=== PATIENT | male | born 1930 | race African-American/Black ===

== ENCOUNTER 2017-08-24 10:10 | Outpatient (CLI) | payer MEDICARE, BC ==
--- NOTE | 2017-08-24 13:27 | CT ---
CT CHEST WITHOUT CONTRAST: Date: 08/24/17 HISTORY: Lung cancer. COMPARISON: Multiple prior exams, most recent 09/02/16. FINDINGS: Corresponding to the area of the known malignancy seen on the 09/02/16 examination is an increase in focal soft tissue density. Initial mass measured approximately 2.6 cm and now measures approximately 3.0 cm. There is increased soft tissue density extending to the hilum. Nodule in the right upper lobe measuring 3.0 mm, series 3, image 19, is similar. There are new areas of peripheral alveolar opacities in the right lower lobe which may be post-treatment in nature. The o verall thickness of the opacification within the right middle lobe has a craniocaudal dimension of 17 .0 mm, previously having a craniocaudal dimension of 6.0 mm. Dense vascular calcifications of the aorta. No significant adenopathy. Dense coronary artery calcific ations. There is interposition of bowel between the right hemidiaphragm and the liver. Spleen is small. IMPRESSION: 1. Increased soft tissue density in the area of suspected right middle lobe malignancy, series 3, im age 33, measuring up to 2.6 cm. This concerning for tumor recurrence or progression. 2. Increased density at the right middle lobe may reflect post-treatment changes. A PET CT would be beneficial in this patient. 3. Unchanged right upper lobe pulmonary nodule. 4. No new pulmonary nodules are seen in the chest. POS: NOE
== END 2017-08-24 10:11 | disposition home or self-care (01) ==
LOC: CT 10:10
PROVIDERS: ATTEND Radiology Radiation Oncology
DX: C34.31 Malignant neoplasm of lower lobe, right bronchus or lung (principal); R91.1 Solitary pulmonary nodule
CPT/HCPCS: 71250

== ENCOUNTER 2017-10-11 17:55 | Inpatient (IN) | payer MEDICARE, BC ==
[2017-10-11] MEDS ORDERED: Morphine 2 MG/ML SYRINGE ONE (19:49)
[2017-10-11 19:50] LABS: #Eosinphils 0.1 thou/uL (0.0-0.7); #Lymphocytes 0.8 thou/uL (1.20-3.40); #Monocytes 0.4 thou/uL (0.11-0.59); #Neutrophils 7.8 thou/uL (1.40-6.50); %Basophils 0.2 % (0.0-1.0); %Eosinophils 1.1 % (0.0-10.0); %Lymphocytes 8.4 % (21.0-51.0); %Monocytes 4.8 % (0.0-10.0); %Neutrophils 85.5 % (42.0-75.0); Hemoglobin 8.7 g/dL (14.0-18.0); Mean Corpuscular HGB CONC 31.6 g/dL (32.0-36.0); Mean Corpuscular Hemoglobin 29.3 pg (27.0-31.0); Mean Corpuscular Volume 92.6 fl (80.0-94.0); Mean Platelet Volume 8.6 fL (7.4-10.4); Platelet Count 216 thou/uL (130-400); Red Blood Cell (RBC) Count 2.98 mill/uL (4.70-6.10); White Blood Cell (WBC) Count 9.2 thou/uL (4.8-10.8)
[2017-10-11 20:04] LABS: ALT (SGPT) 8 U/L (8-55); AST (SGOT) 34 U/L (5-34); Albumin 3.3 g/dL (3.4-4.8); Alkaline Phosphatase 117 U/L (40-150); Anion Gap 13 mmol/L (10-20); BUN (Urea Nitrogen) 20 mg/dL (8.4-25.7); Bilirubin, Total 0.3 mg/dL (0.2-1.2); CK (CPK) 79 U/L (30-200); Calc. Creatinine Clearance 0 mL/min (70-130); Calcium 8.5 mg/dL (7.8-10.44); Carbon Dioxide 25 mmol/L (23-31); Chloride 103 mmol/L (98-107); Estimated GFR-MDRD 46; Globulin 3.6 g/dL (2.4-3.5); Glucose 140 mg/dL (83-110); Magnesium 2.6 mg/dL (1.6-2.6); Potassium 5.7 mmol/L (3.5-5.1); Protein, Total 6.9 g/dL (5.8-8.1); Sodium 135 mmol/L (136-145)
[2017-10-11 20:05] LABS: CKMB 1.4 ng/mL (0-6.6); Troponin I 0.029 ng/mL (< 0.028)
--- NOTE | 2017-10-11 20:14 | RAD ---
RIGHT FEMUR TWO VIEW 10/11/17 HISTORY: Fall. COMPARISON: None. FINDINGS: There is a spiral type fracture of the right femur subtrochanteric region extending into the intertro chanteric region. 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 IMPRESSION: Subtrochanteric right femoral spiral fracture with impaction and medial displacement. POS: MIRIAM
--- NOTE | 2017-10-11 20:15 | RAD ---
RIGHT HIP TWO VIEW 10/11/17 HISTORY: Fall. COMPARISON: None. FINDINGS: A subtrochanteric fracture of the right femur. Severe degenerative disease in the right hip. Moderate vascular calcifications. IMPRESSION: Subtrochanteric fracture of the right femur. POS: NOE
[2017-10-11 20:33] LABS: INR-International Normal Ratio 1.2; PTT 29.7 SEC (22.9-36.1); Prothrombin Time 15.7 SEC (12.0-14.7)
--- NOTE | 2017-10-11 21:06 | RAD ---
CHEST ONE VIEW 10/11/17 HISTORY: Preop. COMPARISON: Radiograph from [address] of the chest 08/24/17. FINDINGS: There is elevation of the right hemidiaphragm. There is a soft tissue mass and consolidation of the r ight lower lobe. Linear atelectasis in the left lower lobe. No pneumothorax. IMPRESSION: Right lower lobe mass with increased opacity in the right lower lobe suggesting postobstructive pneum onitis versus pneumonia. POS: [facility]
[2017-10-11 22:58] LABS: Troponin I 0.022 ng/mL (< 0.028)
[2017-10-11 23:19] LABS: Bilirubin Negative (Negative); Blood, Urine Negative (Negative); Clarity CLEAR (Clear); Glucose, Urine (Dipstick) Negative (Negative); Leukocyte Negative (Negative); Nitrite Negative (Negative); Protein, Urine (Dipstick) Negative (Neg-Trace); Specific Gravity, Urine 1.012 (1.002-1.036); Urobilinogen 0.2 mg/dL (0.2-1.0)
[2017-10-11] MEDS ORDERED: Acetaminophen 325 MG TAB PO PRN (23:45)
[2017-10-11] MEDS ORDERED: Ondansetron HCl/PF 4 MG/2 ML Vial IVP PRN (23:45)
[2017-10-11] MEDS ORDERED: Sodium Chloride 0.9% 1,000 ML IV SCH (23:45)
[2017-10-12] MEDS ORDERED: Gabapentin 300 MG CAP PO PRN (01:21)
[2017-10-12] MEDS ORDERED: Sodium Chloride 0.9% 1,000 ML IV SCH (02:00)
[2017-10-12 02:20] LABS: #Lymphocytes 0.5 thou/uL (1.20-3.40); #Monocytes 0.5 thou/uL (0.11-0.59); #Neutrophils 5.9 thou/uL (1.40-6.50); %Eosinophils 0.1 % (0.0-10.0); %Lymphocytes 7.2 % (21.0-51.0); %Monocytes 7.2 % (0.0-10.0); %Neutrophils 85.4 % (42.0-75.0); Hemoglobin 7.3 g/dL (14.0-18.0); Mean Corpuscular HGB CONC 31.4 g/dL (32.0-36.0); Mean Corpuscular Hemoglobin 29.2 pg (27.0-31.0); Mean Corpuscular Volume 93.2 fl (80.0-94.0); Mean Platelet Volume 7.2 fL (7.4-10.4); Platelet Count 182 thou/uL (130-400); RBC Distribution Width 12.6 % (11.5-14.5); Red Blood Cell (RBC) Count 2.49 mill/uL (4.70-6.10); White Blood Cell (WBC) Count 6.9 thou/uL (4.8-10.8)
[2017-10-12 02:36] LABS: Anion Gap 12 mmol/L (10-20); BUN (Urea Nitrogen) 22 mg/dL (8.4-25.7); Calc. Creatinine Clearance 38 mL/min (70-130); Calcium 8.7 mg/dL (7.8-10.44); Carbon Dioxide 26 mmol/L (23-31); Chloride 103 mmol/L (98-107); Estimated GFR-MDRD 50; Glucose 246 mg/dL (83-110); Potassium 4.7 mmol/L (3.5-5.1); Sodium 136 mmol/L (136-145)
[2017-10-12 02:40] LABS: Troponin I 0.041 ng/mL (< 0.028)
--- NOTE | 2017-10-12 03:34 | HP ---
DATE OF ADMISSION: 10/12/2017 PRIMARY CARE PHYSICIAN: Camron Turnre M.D. CHIEF COMPLAINT: Status post fall with right hip pain. HISTORY OF PRESENT ILLNESS: This is an 87-year-old male with a history of diabetes, coronary artery disease status post 4-vessel CABG, chronic kidney disease who presented with a chief complaint of hav ing fallen when a lawn chair collapsed under him. The patient was seated in the lawn chair, he fell with a lawn chair as a collapsed, sustained a right hip fracture was noted by the emergency departmen t. At the time of my evaluation on the floor, the patient is hemodynamically stable, has no complaints o f pain or discomfort. He is here with his at bedside. REVIEW OF SYSTEMS: As per HPI. Constitutional: No recent weight changes, no recent illnesses. No recent fevers or chills. HEENT: No recent episodes of dizziness, lightheadedness, difficulty with v ision. Cardiovascular: No recent issues with chest pain, chest pressure, shortness of breath, left- sided arm numbness or tingling. Respiratory: The patient's endorses that he has been having an intermittent cough that is nonproductive, but otherwise has not had any issues with congestion, shor tness of breath, wheezing or upper respiratory type infection. Gastrointestinal: No issues with mike sea, vomiting, diarrhea, lack of appetite, abdominal pain. Genitourinary: Has not had any issues wi th dysuria recently. Has been producing reasonable amount of urine per the patient's at bedside . Musculoskeletal: No new issues with myalgias, arthralgias, or ambulation over the last 2 to 4 wee ks per the patient and his at bedside. PAST MEDICAL HISTORY: As per above significant for, 1. Type 2 diabetes. 2. Coronary artery disease, status post 4-vessel CABG by Dr. Mcmahon. 3. Chronic kidney disease. 4. Chronic anemia. PAST SURGICAL HISTORY: 1. Status post right humeral repair. 2. Status post ureteroscopy. HOME MEDICATIONS: As per the EMR. No recent changes, no new addition, over the counter medication, vitamin supplements or herbal regimens item. ALLERGIES: PENICILLINS. FAMILY HISTORY: Significant for cardiovascular disease. SOCIAL HISTORY: No tobacco, no alcohol, no illicit drug use. The patient is accompanied by his at bedside today. The patient wishes his to be the medical decision maker if he is unable to m christian his own medical decisions. The patient endorses being a DO NOT RESUSCITATE at this point in time , he is amenable to reversal of this for surgical procedure if needed, but otherwise would like to re main a DO NOT RESUSCITATE/DO NOT INTUBATE outside of a reasonable surgical procedures. PHYSICAL EXAMINATION: GENERAL: The patient is awake, alert, appropriate, in no acute distress, lying in the hospital bed. HEENT: Moist mucous membranes. Equal ocular motions are intact. CARDIOVASCULAR: S1, S2. Pulses 2+ bilateral upper extremity, no pitting pedal edema. RESPIRATORY: Limited anterior examination, otherwise grossly clear to auscultation. No wheezes, ral es or rhonchi. ABDOMEN: Positive bowel sounds, soft, nontender to palpation. MUSCULOSKELETAL: No significant proportion of ecchymoses noted. LABORATORY DATA AND IMAGING: WBC 9.2, hemoglobin 8.7, hematocrit 27.6, platelets 216. INR 1.2, PT 1 5.7. Sodium 135, potassium 5.7, chloride 103, bicarbonate 25, BUN 20, creatinine 1.71, glucose 140, calcium 8.5, magnesium 2.6, total bilirubin 0.3, AST 34, ALT 8, alkaline phosphatase 117, CK-MB 1.4. Creatine kinase 79. Initial troponin 0.029 subsequent 0.022. Total protein 6.9, albumin 3.3. UA i s essentially negative. On 10/11/2017, right femur 2 view impression: "Subtrochanteric right femora l spiral fracture with impaction and medial displacement." On 10/11/2017, hip x-ray at 1759, impress ion: "Subtrochanteric fracture of the right femur." On 10/11/2017 at 1741, chest x-ray, impression: " Right lower lobe mass with increased opacity in the right lower lobe suggesting postobstructive p neumonitis versus pneumonia." ASSESSMENT AND PLAN: An 87-year-old male status post fall in a lawn chair, sustaining a right hip fr acture. 1. Right subtrochanteric right femoral spiral fracture with impaction and medial displacement. Appr eciate orthopedic consultation. The patient currently on bed rest with pain controlled. The patient is currently hemodynamically stable. 2. Elevated troponin of indeterminate significance. Serially trend the patient's troponin. He does have a known history of coronary artery disease with history of CABG bypass required. We will resum e the patient on his home regimen. We will check echocardiogram if available as well. To consider c onsultation with Cardiology for preoperative clearance depending on the urgency of his fracture repai r. 3. History of chronic renal disease. Creatinine appears to be grossly close to patient's baseline. We will closely monitor patient's urine output. 4. Hyperkalemia. We will recheck the patient's BMP if needed. 5. Question of right lower lobe opacification as the patient does not have any signs or symptoms con sistent with pneumonia. We will hold off on antibiotics, specifically for that, closely monitor. Th ere is no leukocytosis, shortness of breath, dyspnea with exertion or fever. The patient has an inte rmittent and scant cough that is grossly nonproductive. As noted above, we will monitor. 6. Diet: N.p.o. after midnight. 7. Activity: Bed rest. 8. Deep venous thrombosis prophylaxis: Heparin subcu. The patient is a DO NOT RESUSCITATE as discussed above, but this could be reversed for procedure as d iscussed with the patient and his at bedside. Thank you for asking me to care for your patient. Questions or concerns, contact me at [facility] ananth.
--- NOTE | 2017-10-12 07:03 | CON ---
DATE OF CONSULTATION: 10/11/2017 REQUESTING PHYSICIAN: Dr. Steve HISTORY OF PRESENT ILLNESS: The patient is an 87-year-old gentleman who I examined in the emergency room with his at bedside for evaluation of right hip pain. He reports that earlier in the after noon on 10/11/2017 he went to sit down in a lawn chair that collapsed underneath him falling on a con crete floor. He reports immediate right hip pain and inability to ambulate. He was brought to the e mergency room and x-rays were obtained of the hip that showed an intertroch/subtroch femur fracture w ith a severely degenerative right hip. The patient denies any preexisting hip pain or groin pain. Roberta clemente is a household and light community ambulator. He does use assistive device. The patient now admit fransisco to the medical service due to multiple severe comorbidities. PAST MEDICAL HISTORY: Remarkable for type 2 diabetes, coronary artery disease, chronic renal disease , history of prostate cancer, history of lung cancer, hypertension, congestive heart failure. PAST SURGICAL HISTORY: Includes 4-vessel coronary artery bypass in 2007, right total elbow arthropla sty in 2014, status post ureteroscopy. MEDICATIONS: The patient brings in a medication list and the hospital has a list on his computer wit h the patient's list including amlodipine, aspirin 81 mg, Cardura, Pepcid, Flonase, Lasix, Neurontin, glipizide, Cozaar, metoprolol, simvastatin. ALLERGIES: PENICILLIN. SOCIAL HISTORY: The patient denies alcohol use or drug use and there is no smoking history. He does live with his . FAMILY HISTORY: Remarkable for coronary artery disease. REVIEW OF SYSTEMS: The patient denies recent fevers, chills or sweats. He denies recent chest pain or shortness of breath, although he has had a recent cough. He denies lower extremity numbness or ti ngling. PHYSICAL EXAMINATION: VITAL SIGNS: Temperature of 97.8, heart rate of 71, respiratory rate of 24, blood pressure 136/61. HEENT: Atraumatic, normocephalic. HEART: Shows a regular rate and rhythm and I do not appreciate murmur to my auscultation. LUNGS: Lungs are remarkable for mild diminished right-sided breath sounds, but no wheezes or rhonchi . Chest wall is nontender. ABDOMEN: Nontender with normal bowel sounds. Pelvis is stable to compression. EXTREMITIES: Remarkable for bilateral upper extremities that are atraumatic. He does have a well he aled surgical incision at the right elbow from prior total elbow arthroplasty and does have limited r yin of motion in this elbow. Lower extremities remarkable for an atraumatic left lower extremity. The right lower extremity is held in a shortened and externally rotated posture at the hip. The knee is remarkable for a trace effusion, but no acute tenderness. Lower leg remarkable for some pitting edema and chronic venous stasis changes of the skin, but no ulceration. He denies numbness or tingli ng. He is able to move his ankle and foot. His thigh compartments are soft. LABORATORY: White count of 9.2, hematocrit 27.6 and 216,000 platelets. He is found to have an INR o f 1.2. Sodium of 135 and a potassium of 5.7. X-RAYS: Include right femur and right hip which are remarkable for a subtrochanteric fracture that d oes spiral into the intertrochanteric region with a severely degenerative hip. ASSESSMENT: An 87-year-old gentleman status post fall from a lawn chair, sustaining a right intertro ch/subtrochanteric femur fracture. PLAN: I have discussed with the patient and his the nature of the injury as well as potential t reatment options. These options including benign neglect, surgical stabilization of the fracture, an d reconstructive hip replacement surgery with osteosynthesis of the proximal femur fracture. Given t hat patient did not have any preexisting hip complaints and denied any groin pain, I think proceeding with stabilization of the fracture, ignoring the hip arthritis for the time being is reasonable, taya ecially given the patient's overall health. I believe that stabilizing the proximal femur will allow him to resume some mobility and hopefully improve quality of life. Today I also discussed with wayne ent and risks of surgery. These include, but are not limited to bleeding, infection, nerve inju ry, DVT, PE, malunion, nonunion, loss of limb or life. They do appear to understand and wished to pr oceed with fracture stabilization. Informed consent will be obtained prior to surgery.
[2017-10-12] MEDS ORDERED: FLU VACC TS2017-18 (>65YR) 0.5 ML SYRINGE IM ONE (09:00)
[2017-10-12 10:27] LABS: Anion Gap 10 mmol/L (10-20); BUN (Urea Nitrogen) 24 mg/dL (8.4-25.7); Calc. Creatinine Clearance 37 mL/min (70-130); Calcium 8.6 mg/dL (7.8-10.44); Carbon Dioxide 29 mmol/L (23-31); Chloride 104 mmol/L (98-107); Estimated GFR-MDRD 49; Glucose 183 mg/dL (83-110); Potassium 4.6 mmol/L (3.5-5.1); Sodium 138 mmol/L (136-145)
--- NOTE | 2017-10-12 11:06 | PRG ---
DATE OF SERVICE: 10/12/2017 SUBJECTIVE: Mr. Tran is an 87-year-old man who fell down from a lawn chair yesterday, suffering a right hip fracture. The patient denied any pre-fall, syncope or dyspnea. Since the fall he has had no syncope, chest pain or dyspnea. The patient resides in a two-story home, although he has not been upstairs over the last 2 years due to degenerative arthritic disease. The patient usually ambulates with the aid of a cane. He is able to walk more than 50 feet to his mailbox and back without any shortness of breath or chest pain. Currently, [place] coma scale is 15 and the patient moves all extremities and answers questions appropriately. He reports adequate pain control. PHYSICAL EXAMINATION: VITAL SIGNS: This morning includes blood pressure 109/53, pulse 77, respiratory rate is 20, temperature 98.3 degrees Fahrenheit, oxygen saturation is 100% on 2 liters by nasal cannula oxygen. HEENT: Reveals normocephalic and atraumatic. Pupils equal, round, and reactive to light and accommodation. He has no jugular venous distention noted. The patient is partially edentulous with no intraoral lesions noted. HEART: Reveals regular rate and rhythm, no murmurs or gallops auscultated. CHEST: Lungs clear to auscultation bilaterally. His breathing is regular and unlabored. ABDOMEN: Soft, nontender, nondistended. Bowel sounds in all 4 quadrants appear normoactive. Liver and spleen nonpalpable below costal margins. EXTREMITIES: Reveals 2+ radial and pedal pulses bilaterally. He has no ankle edema present. LABORATORY DATA: Pertinent laboratory findings today includes a CBC with 6900 white blood cells, hemoglobin and hematocrit 7.3 and 23.2 respectively. Platelet count is 182,000. Metabolic profile: Sodium 138, potassium is 4.6, chloride is 104, bicarbonate is 29, BUN and creatinine stable at 24 and 1.63, respectively. Glucose is 183. Serial troponin obtained at 4 hour intervals as follows; 0.029, 0.022 and 0.041. IMPRESSION: 1. Post-admission day #1 status post fall. 2. Right subtrochanteric spiral femur fracture. 3. Stage 3 kidney disease. 4. Acute hyperglycemia. 5. History of coronary artery disease. PLAN: 1. Obtain a 12-lead EKG and a transthoracic 2D echocardiography to evaluate the patient's cardiac chamber size, function and rule out any wall motion abnormalities. 2. The patient has been evaluated by Orthopedic Surgery for possible surgical intervention, which will be at moderate risk for any cardiac events given his modest baseline functional status. 3. Avoid nephrotoxic agents. The above findings and plan discussed with the patient who indicates understanding of the information given. I have answered his questions. YAMIL
[2017-10-12 11:27] LABS: Troponin I 0.038 ng/mL (< 0.028)
[2017-10-12] MEDS ORDERED: Clindamycin/D5W 600 MG in Premix Bag 1 BAG IVPB SCH (12:00)
[2017-10-12] MEDS ORDERED: Levofloxacin 500 mg/D5W 100 ml Premix Bag ONE (14:52)
[2017-10-12] MEDS ORDERED: PHENYLEPHRINE-NS 100 MCG/ML 10 ML SYRINGE ONE (15:01)
[2017-10-12] MEDS ORDERED: Midazolam HCl 2 mg/2 ml Vial ONE ×2 (16:58→17:33)
[2017-10-12] MEDS ORDERED: Propofol 500 MG/50 ML VIAL ONE (16:59)
[2017-10-12] MEDS ORDERED: Ketamine 50 MG/ML VIAL ONE ×2 (16:59→17:33)
[2017-10-12] MEDS: Doxazosin Mesylate 4 MG TAB PO SCH (17:50)
[2017-10-12] MEDS: Famotidine 20 MG TAB PO SCH (17:50)
[2017-10-12] MEDS: Bicalutamide 50 MG TAB PO SCH (17:50)
[2017-10-12] MEDS: Amlodipine 10 MG TAB PO SCH (17:50)
[2017-10-12] MEDS: Fluticasone Propionate Nasal Spray 16 gm Bottle NASAL SCH (17:50)
[2017-10-12] MEDS: Heparin 5,000 UNITS/ML VIAL SC SCH ×2 (17:51→20:38)
[2017-10-12] MEDS: Losartan 25 MG TAB PO SCH (17:52)
[2017-10-12] MEDS: Prenatal Vitamin 1 TAB PO SCH ×2 (17:52→20:38)
[2017-10-12] MEDS ORDERED: Morphine Sulfate 2 MG/ML SYRINGE SLOW IVP PRN (18:43)
[2017-10-12] MEDS: Clindamycin/D5W 900 MG in Premix Bag 1 BAG IVPB SCH (20:38)
[2017-10-12] MEDS: Simvastatin 5 MG TAB PO SCH (20:38)
[2017-10-12] MEDS ORDERED: FLUOCINOLONE EA EAR SCH (21:00)
[2017-10-12] MEDS ORDERED: HYDROcodone/Acetaminophen 5/325 mg Tablet PO PRN ×2 (21:45)
--- NOTE | 2017-10-13 00:41 | OP ---
DATE OF PROCEDURE: 10/12/2017 PROCEDURE PERFORMED: Right femur intramedullary nail. PREOPERATIVE DIAGNOSIS: Right subtrochanteric femur fracture. POSTOPERATIVE DIAGNOSIS: Right subtrochanteric femur fracture. COMPLICATIONS: None. ESTIMATED BLOOD LOSS: 150 mL SURGEON: Sg Chao M.D. ANESTHESIA: Regional, plus sedation. ASSISTANT CUSTOMER SERVICE MANAGER: Andrea Lo PA-C. IMPLANTS: Synthes right long trochanteric femoral nail with helical blade. INDICATIONS: Mr. Tran is an 87-year-old male who fractured his right femur after a fall. He was found to have a subtrochanteric fracture, which was indicated for intramedullary nail fixation to res tore alignment and promote mobilization. Goal of surgery is to prevent complications of prolonged be d rest. He has elected to proceed. He is at increased risk of complications given his multiple medi ilia problems. DESCRIPTION OF PROCEDURE: Mr. Tran was identified in the preoperative holding area. His correct extremity was marked. He was carried to the operating room. He was positioned supine. General anes thesia was induced. A multidisciplinary timeout was performed. The right lower extremity was preppe d and draped in sterile fashion. We reduced the fracture using traction on the fracture table using intraoperative x-ray to transformer molder our reduction. At this point, we made an incision proximal to the grea ter trochanter. We then inserted our guidewire at the tip of the trochanter. At this point, we over reamed the guidewire. We then placed a long ball-tip guidewire from proximal to distal. At this poi nt, we images with x-ray. We then overreamed the guidewire up to a size 13 mm reamer. We then place d an 11 mm femoral nail from proximal to distal. We seated this appropriately. We then placed a hel ical blade in the center position of the femoral head under x-ray guidance. Finally, we placed a dis mago cross lock screw locking the distal aspect of the nail. We took final images. We then thoroughl y irrigated with copious lavage. We then closed with a 0 Vicryl suture, 2-0 Vicryl suture and staple s for the skin. A sterile dressing was applied. The patient was taken to the recovery room in good condition without complication.
[2017-10-13 04:53] LABS: #Lymphocytes 0.4 thou/uL (1.20-3.40); #Monocytes 0.7 thou/uL (0.11-0.59); #Neutrophils 5.9 thou/uL (1.40-6.50); %Basophils 0.2 % (0.0-1.0); %Eosinophils 0.3 % (0.0-10.0); %Lymphocytes 5.8 % (21.0-51.0); %Monocytes 9.3 % (0.0-10.0); %Neutrophils 84.5 % (42.0-75.0); Hemoglobin 7.6 g/dL (14.0-18.0); Mean Corpuscular HGB CONC 32.5 g/dL (32.0-36.0); Mean Corpuscular Hemoglobin 30.1 pg (27.0-31.0); Mean Corpuscular Volume 92.6 fl (80.0-94.0); Mean Platelet Volume 7.7 fL (7.4-10.4); Platelet Count 151 thou/uL (130-400); RBC Distribution Width 12.4 % (11.5-14.5); Red Blood Cell (RBC) Count 2.53 mill/uL (4.70-6.10)
[2017-10-13] MEDS: Clindamycin/D5W 900 MG in Premix Bag 1 BAG IVPB SCH (05:06)
[2017-10-13 05:07] LABS: Anion Gap 11 mmol/L (10-20); BUN (Urea Nitrogen) 32 mg/dL (8.4-25.7); Calc. Creatinine Clearance 33 mL/min (70-130); Calcium 8.6 mg/dL (7.8-10.44); Carbon Dioxide 27 mmol/L (23-31); Chloride 105 mmol/L (98-107); Estimated GFR-MDRD 42; Glucose 283 mg/dL (83-110); Phosphorus 3.4 mg/dL (2.3-4.7); Potassium 4.7 mmol/L (3.5-5.1); Sodium 138 mmol/L (136-145)
--- NOTE | 2017-10-13 07:45 | RAD ---
RIGHT HIP: TECHNIQUE: Six fluoroscopic views are presented from the OR. INDICATION: Intraoperative imaging during internal fixation procedure. FINDINGS/IMPRESSION: Intramedullary tonya and pin transfix femur and femoral neck. POS: NOE
[2017-10-13] MEDS ORDERED: Sodium Chloride 0.9% 500 ML IV SCH ×2 (08:15→16:00)
[2017-10-13] MEDS ORDERED: Dextrose 5% in Water 1,000 ML IV PRN (08:22)
[2017-10-13] MEDS ORDERED: Dextrose 50% Abboject 50 ML SYRINGE IVP PRN (08:22)
[2017-10-13] MEDS: Polyethylene Glycol 3350 17 GM Packet PO SCH (09:53)
[2017-10-13] MEDS: Doxazosin Mesylate 4 MG TAB PO SCH (09:53)
[2017-10-13] MEDS: Heparin 5,000 UNITS/ML VIAL SC SCH ×3 (09:53→21:18)
[2017-10-13] MEDS: Prenatal Vitamin 1 TAB PO SCH ×2 (09:54→21:18)
[2017-10-13] MEDS: Bicalutamide 50 MG TAB PO SCH (09:55)
[2017-10-13] MEDS: Famotidine 20 MG TAB PO SCH (09:55)
[2017-10-13] MEDS: Senokot S 8.6-50 MG TAB PO SCH ×2 (09:56→21:18)
[2017-10-13] MEDS ORDERED: Amlodipine 10 MG TAB PO SCH (10:05)
[2017-10-13] MEDS: Losartan 25 MG TAB PO SCH (10:06)
[2017-10-13] MEDS: Amlodipine 10 MG TAB PO SCH (11:46)
[2017-10-13] MEDS: Fluticasone Propionate Nasal Spray 16 gm Bottle NASAL SCH (11:48)
--- NOTE | 2017-10-13 12:32 | PRG ---
DATE OF SERVICE: 10/13/2017 SUBJECTIVE: Mr. Tran is an 87-year-old man who is postoperative day #1, status p ost right femur intramedullary nail. The patient is awake and alert. His elderly is at bedside . The patient reports adequate pain control. He denies any dyspnea, chest pain or syncope. He tolerates clear liquid diet. OBJECTIVE: VITAL SIGNS: Currently includes blood pressure 145/56, pulse 78, respiratory rate is 20, temperature is 98.4 degrees Fahrenheit, oxygen saturation is 93% on 2 liters by nasal cannula oxygen. HEENT: Reveals normocephalic and atraumatic. Pupils are equal, round, and reactive to light and acc ommodation. The patient has no jugular venous distention noted. HEART: Reveals regular rate and rhythm. No murmurs or gallops auscultated. CHEST: Lungs are clear to auscultation bilaterally. Breathing regular and unlabored. ABDOMEN: Soft, nontender, nondistended. EXTREMITIES: Reveals 2+ radial and pedal pulses bilaterally. No ankle edema is present. NEUROLOGIC: Reveals no focal deficits present. A 2D echocardiogram which was obtained yesterday is unremarkable for any cardiac chamber size abnorma lity. The ejection fraction is within normal limits. LABORATORY DATA: Today includes a CBC with 7000 white blood cells, hemoglobin and hematocrit are sta ble at 7.6 and 23.4 respectively. Platelet count is 151,000. Metabolic profile: Sodium is 138, pot assium is 4.7, chloride is 105, bicarbonate is 27, BUN and creatinine elevated above baseline at 32 a nd 1.83 respectively. Glucose is elevated at 283. Phosphorus is 3.4. IMPRESSION: 1. Postoperative day #1, status post right femur intramedullary nail. 2. Acute on chronic renal insufficiency with prerenal azotemia. 3. Acute hyperglycemia. PLAN: 1. We will increase fluid intake and monitor urinary output as endpoint of resuscitation. 2. We will also obtain a followup BUN and creatinine to ensure resolution of acute component of the renal insufficiency. 3. Initiate physical and occupational therapy. 3. PM&R will be asked to evaluate the patient for possible inpatient rehabilitation. 4. Maintain a titer glucose control using sliding scale insulin. 5. Oral hypoglycemics will be initiated once patient is tolerating a general diet. Above findings a nd plan discussed with the patient and his elderly at bedside. They both indicated understand i nformation given. I answered their questions.
--- NOTE | 2017-10-13 15:09 | PQF ---
CLINICAL DOCUMENTATION IMPROVEMENT CLARIFICATION FORM: ICD-10 Updated PLEASE DO AN ADDENDUM TO THE PROGRESS NOTE WITH ANY DOCUMENTATION UPDATES OR ADDITIONS AND CARRY THROUGH TO DC SUMMARY. THANK YOU. DATE: 10/13/17 ATTN: Dr. Greene Please exercise your independent, professional judgment in responding to the clarification form. Clinical indicators are provided on the bottom of this form for your review Please check appropriate box(s): [ ] Acute Renal Failure (ARF) / Acute Kidney Injury (MAMI) (Please specify associated condition, if applicable) [ ] Acute on Chronic Renal Failure please specify Stage of CKD (see below) [ x] CKD without ARF/MAMI please specify Stage of CKD III [ ] Other diagnosis [ ] Unable to determine In addition, please specify: Present on Admission (POA): [ x ] Yes [ ] No [ ] Unable to determine National Kidney Foundation Guidelines for CKD Staging Stage I Kidney damage with normal or increased GFR GFR > 90 Stage II Kidney damage with mildly decreased GFR GFR 60-89 Stage III Kidney damage with moderately decreased GFR GFR 30-59 Stage IV Kidney damage with severely decreased GFR GFR 16-29 Stage V Kidney failure GFR<15 ESRD End Stage Renal Disease On dialysis Acute Renal Failure/Acute Kidney Failure defined as: Increases in SCr by (>) 0.3 mg/dl within 48 hours OR- Increases in SCr by (>) 1.5 times baseline, known or presumed to have occurred within the prior 7 days OR- Urine volume < 0.5 ml/kg/hour for 6 hours (KDIGO supplement 2012 for RIFLE/CLINTON criteria) For continuity of documentation, please document condition throughout progress notes and discharge summary. Thank You. CLINICAL INDICATORS - SIGNS / SYMPTOMS / LABS 10/12/17 10/13/17 LABS: CREATININE 1.58 1.83 ESTIMATED GFR 50 42 TRAUMA PN 10/13: ACUTE ON CHRONIC RENAL INSUFFICIENCY W/ PRERENAL AZOTEMIA. RISKS: H&P: HX SIGNIFICANT FOR TYPE 2 DM, CAD, CKD, CHRONIC ANEMIA. R SUBTROCHANTERIC R FEMORAL SPIRAL FRACTURE W/ IMPACTION & MEDIAL DISPLACEMENT. TRAUMA PN 3: POSTOPERATIVE DAY #1, S/P R FEMUR INTRAMEDULLARY NAIL. TREATMENTS: TRAUMA PN 38: WILL INCREASE FLUID INTAKE & MONITOR URINARY OUTPUT ENDPOINT OF RESUSCITATION. WILL OBTAIN F/U BUN & CREATININE TO ENSURE RESOLUTION OF ACUTE COMPONENT OF THE RENAL INSUFFICIENCY. Thank you, Sierra (This form is maintained as a part of the permanent medical record) 2015 [employer]. All Rights Reserved Sierra Lobato RN, BSN [email or web address] Office: [phone] [facility]
[2017-10-13] MEDS: Sodium Chloride 0.9% 1,000 ML IV SCH (16:53)
[2017-10-13] MEDS: Insulin Regular 300 UNITS/3 ML VIAL SC PRN ×2 (17:06→21:19)
[2017-10-13] MEDS ORDERED: Losartan 25 MG TAB PO SCH (21:00)
[2017-10-13] MEDS: Simvastatin 5 MG TAB PO SCH (21:18)
[2017-10-14 04:42] LABS: Anion Gap 9 mmol/L (10-20); BUN (Urea Nitrogen) 29 mg/dL (8.4-25.7); Calc. Creatinine Clearance 33 mL/min (70-130); Calcium 8.3 mg/dL (7.8-10.44); Carbon Dioxide 27 mmol/L (23-31); Chloride 107 mmol/L (98-107); Estimated GFR-MDRD 43; Glucose 190 mg/dL (83-110); Magnesium 2.2 mg/dL (1.6-2.6); Phosphorus 2.2 mg/dL (2.3-4.7); Potassium 4.4 mmol/L (3.5-5.1); Sodium 139 mmol/L (136-145)
[2017-10-14 05:16] LABS: #Eosinphils 0.1 thou/uL (0.0-0.7); #Lymphocytes 0.7 thou/uL (1.20-3.40); #Monocytes 0.6 thou/uL (0.11-0.59); #Neutrophils 4.9 thou/uL (1.40-6.50); %Basophils 0.2 % (0.0-1.0); %Eosinophils 1.7 % (0.0-10.0); %Lymphocytes 10.7 % (21.0-51.0); %Monocytes 8.8 % (0.0-10.0); %Neutrophils 78.5 % (42.0-75.0); Band 8 % (5-11); Eosinophils 1 % (0-10); Hemoglobin 6.5 g/dL (14.0-18.0); Lymphocytes 6 % (21-51); MDiff Complete? YES; Mean Corpuscular HGB CONC 33.7 g/dL (32.0-36.0); Mean Platelet Volume 7.7 fL (7.4-10.4); Monocytes 10 % (0-10); Neutrophil 75 % (42-75); PLT Morphology Comment Appears Decreased; Platelet Count 111 thou/uL (130-400); RBC Distribution Width 12.5 % (11.5-14.5); RBC Morphology Normal; White Blood Cell (WBC) Count 6.2 thou/uL (4.8-10.8)
[2017-10-14] MEDS: Insulin Regular 300 UNITS/3 ML VIAL SC PRN ×3 (05:41→16:26)
[2017-10-14 05:59] VITALS: BMI 26.4
[2017-10-14] MEDS: Sodium Chloride 0.9% 1,000 ML IV SCH ×3 (07:02→22:36)
[2017-10-14] MEDS ORDERED: Sodium Chloride 0.9% 500 ML IV SCH (08:00)
[2017-10-14] MEDS ORDERED: Polyethylene Glycol 3350 17 GM Packet PO SCH (09:00)
[2017-10-14] MEDS ORDERED: traMADol HCl 50 MG TAB PO PRN (09:23)
[2017-10-14] MEDS: traMADol HCl 50 MG TAB PO SCH ×3 (09:34→22:20)
[2017-10-14] MEDS: Acetaminophen 500 MG TAB PO SCH ×3 (09:35→22:20)
[2017-10-14] MEDS: Heparin 5,000 UNITS/ML VIAL SC SCH ×3 (09:40→22:19)
[2017-10-14] MEDS: Polyethylene Glycol 3350 17 GM Packet PO SCH (09:40)
[2017-10-14] MEDS: Prenatal Vitamin 1 TAB PO SCH ×2 (09:41→22:20)
[2017-10-14] MEDS: Fluticasone Propionate Nasal Spray 16 gm Bottle NASAL SCH (09:41)
[2017-10-14] MEDS: Doxazosin Mesylate 4 MG TAB PO SCH (09:41)
[2017-10-14] MEDS: Ferrous Sulfate 325 MG TAB PO SCH ×2 (09:43→18:27)
[2017-10-14] MEDS: Ascorbic Acid 500 mg Chewable Tablet PO SCH ×2 (09:43→18:27)
[2017-10-14] MEDS: Bicalutamide 50 MG TAB PO SCH (09:44)
[2017-10-14] MEDS: Senokot S 8.6-50 MG TAB PO SCH ×2 (09:44→22:20)
[2017-10-14] MEDS: Famotidine 20 MG TAB PO SCH (09:44)
--- NOTE | 2017-10-14 11:14 | PRG ---
DATE OF SERVICE: 10/14/2017 SUBJECTIVE: Mr. Tran is an 87-year-old man who is postoperative day #2, status p ost right femur intramedullary nail. The patient is awake and alert. He reports adequate pain contr ol this morning. He participated with physical therapy. He tolerated a general diet for breakfast t his morning. He is having normal bowel and urinary function. He denies any dyspnea, syncope or chest pain. OBJECTIVE: VITAL SIGNS: This morning includes blood pressure 137/46, pulse is 79, respiratory rate is 22, maxim um temperature in the last 24 hours is 99 degrees Fahrenheit, oxygen saturation is currently 97% on 2 liters by nasal cannula oxygen. HEENT: Reveals normocephalic and atraumatic. Pupils are equal, round, and reactive to light and acc ommodation. He has no jugular venous distention noted. HEART: Reveals regular rate and rhythm, no murmurs or gallops auscultated. CHEST: Clear to auscultation bilaterally. Breathing regular and unlabored. ABDOMEN: Soft, nontender, nondistended. EXTREMITIES: Reveals 2+ radial and pedal pulses bilaterally. He has no ankle edema present. NEUROLOGIC: Reveals no focal deficits present. LABORATORY DATA: Today includes a CBC with 6200 white blood cells, hemoglobin 6.5, hematocrit is 19. 3, platelet count is 111,000. Metabolic profile: Sodium 139, potassium is 4.4, chloride is 107, bic arbonate 27, BUN 29, creatinine is 1.81, glucose is 190. Magnesium 2.2, phosphorus is 2.2. IMPRESSION: 1. Postop day #2, status post repair of right hip fracture. 2. Acute blood loss anemia. 3. Stable stage 3 kidney disease. 4. Acute hypophosphatemia. PLAN: 1. The patient will be transfused with 1 unit of packed red blood cells. 2. We will monitor his urinary output as endpoint of his resuscitation and continue to monitor his B UN and creatinine to ensure stable GFR. 3. Continue with physical and occupational therapy. 4. The patient has been evaluated by PM&R for possible inpatient rehabilitation once a bed becomes a vailable. The above findings and plan discussed with the patient and his . They both indicated understandi ng of information given. I answered their questions.
[2017-10-14] MEDS ORDERED: Bisacodyl 10 MG SUPP PR SCH (17:15)
[2017-10-14] MEDS: Simvastatin 5 MG TAB PO SCH (22:19)
[2017-10-15] MEDS: Acetaminophen 500 MG TAB PO SCH ×3 (05:24→16:02)
[2017-10-15] MEDS: traMADol HCl 50 MG TAB PO SCH ×3 (05:25→16:02)
[2017-10-15 06:12] LABS: #Eosinphils 0.3 thou/uL (0.0-0.7); #Lymphocytes 0.5 thou/uL (1.20-3.40); #Monocytes 0.5 thou/uL (0.11-0.59); #Neutrophils 4.3 thou/uL (1.40-6.50); %Eosinophils 5.1 % (0.0-10.0); %Lymphocytes 9.5 % (21.0-51.0); %Monocytes 8.2 % (0.0-10.0); %Neutrophils 77.2 % (42.0-75.0); Hemoglobin 6.6 g/dL (14.0-18.0); Mean Corpuscular Hemoglobin 29.8 pg (27.0-31.0); Mean Corpuscular Volume 93.3 fl (80.0-94.0); Mean Platelet Volume 8.4 fL (7.4-10.4); Platelet Count 117 thou/uL (130-400); RBC Distribution Width 12.7 % (11.5-14.5); Red Blood Cell (RBC) Count 2.22 mill/uL (4.70-6.10); White Blood Cell (WBC) Count 5.6 thou/uL (4.8-10.8)
[2017-10-15 06:56] LABS: Anion Gap 8 mmol/L (10-20); BUN (Urea Nitrogen) 24 mg/dL (8.4-25.7); Calc. Creatinine Clearance 46 mL/min (70-130); Calcium 8.2 mg/dL (7.8-10.44); Carbon Dioxide 28 mmol/L (23-31); Chloride 106 mmol/L (98-107); Estimated GFR-MDRD 55; Glucose 119 mg/dL (83-110); Magnesium 1.9 mg/dL (1.6-2.6); Phosphorus 2.7 mg/dL (2.3-4.7); Potassium 4.7 mmol/L (3.5-5.1); Sodium 137 mmol/L (136-145)
[2017-10-15] MEDS ORDERED: Bisacodyl 10 MG SUPP PR SCH (09:00)
[2017-10-15] MEDS ORDERED: Polyethylene Glycol 3350 17 GM Packet PO SCH (09:00)
[2017-10-15] MEDS: Fluticasone Propionate Nasal Spray 16 gm Bottle NASAL SCH (09:48)
[2017-10-15] MEDS: Heparin 5,000 UNITS/ML VIAL SC SCH ×3 (09:49→16:31)
[2017-10-15] MEDS: Prenatal Vitamin 1 TAB PO SCH (09:49)
[2017-10-15] MEDS: Famotidine 20 MG TAB PO SCH (09:50)
[2017-10-15] MEDS: Ferrous Sulfate 325 MG TAB PO SCH (09:50)
[2017-10-15] MEDS: Ascorbic Acid 500 mg Chewable Tablet PO SCH (09:50)
[2017-10-15] MEDS: Bicalutamide 50 MG TAB PO SCH (09:50)
[2017-10-15] MEDS: Senokot S 8.6-50 MG TAB PO SCH (09:51)
[2017-10-15] MEDS: Doxazosin Mesylate 4 MG TAB PO SCH (09:51)
[2017-10-15 16:22] VITALS: BP 137/65; TEMP 98.4
--- NOTE | 2017-10-15 19:03 | EKG ---
Test Reason : Blood Pressure : / mmHG Vent. Rate : 075 BPM Atrial Rate : 075 BPM P-R Int : 000 ms QRS Dur : 122 ms QT Int : 468 ms P-R-T Axes : 000 -70 -02 degrees QTc Int : 522 ms Wide QRS rhythm Right bundle branch block Left anterior fascicular block Bifascicular block Cannot rule out Inferior infarct (masked by fascicular block?) , age undetermined Abnormal ECG Confirmed by RODOLFO KARIMI, DAVID ([id number]), communications editor YASMEEN KERN ([id number]) on 10/15/2017 7:02:29 PM Referred By: Confirmed By:DAVID REYNOLDS MD
== END 2017-10-15 18:41 | DRG 481 ==
LOC: ERS 17:55 → 2NO 19:45 → SURG A 10-12 18:19
PROVIDERS: ADMIT Surgery; ATTEND Surgery
PROC: 0QS604Z Reposition Right Upper Femur with Internal Fixation Device, Open Approach (ICD-10-PCS; principal; 2017-10-12)
PROC: 30233N1 Transfusion of Nonautologous Red Blood Cells into Peripheral Vein, Percutaneous Approach (ICD-10-PCS; 2017-10-12)
DX: S72.21XA Displaced subtrochanteric fracture of right femur, initial encounter for closed fracture (principal); D62 Acute posthemorrhagic anemia; E11.22 Type 2 diabetes mellitus with diabetic chronic kidney disease; E11.65 Type 2 diabetes mellitus with hyperglycemia; E87.5 Hyperkalemia; D63.1 Anemia in chronic kidney disease; Z95.1 Presence of aortocoronary bypass graft; I12.9 Hypertensive chronic kidney disease with stage 1 through stage 4 chronic kidney disease, or unspecified chronic kidney disease; I25.10 Atherosclerotic heart disease of native coronary artery without angina pectoris; W07.XXXA Fall from chair, initial encounter; Z88.0 Allergy status to penicillin; Z66 Do not resuscitate; N18.3 Chronic kidney disease, stage 3 (moderate); E83.39 Other disorders of phosphorus metabolism; Z85.46 Personal history of malignant neoplasm of prostate; Z85.118 Personal history of other malignant neoplasm of bronchus and lung; E78.5 Hyperlipidemia, unspecified; I44.4 Left anterior fascicular block
CPT/HCPCS: 36415; 36416; 36430; 71045; 76001; 80048; 80053; 81003; 82553; 83735; 84100; 84484; 85025; 85610; 85730; 86850; 86900; 86901; 90471; 90682; 93005; 93306; 94760; 96374; A4216; C1713; C1769; G0008; G0390; G8978-GP-CM; G8979-GP-CJ; G8987-GO-CM; G8988-GO-CJ; J1644; J1815; J1956; J2250; J2270; J2704; J3490; J7620; P9016; Q2036